=== PATIENT | female | born 1985 | race Caucasian/White ===

== ENCOUNTER 2017-06-25 13:28 | Emergency (ER) | payer OTHER ==
[~2017-06-25] VITALS: Ht 162.6 cm; Wt 52.2 kg
--- NOTE | 2017-06-25 13:40 | NUR ---
AAOX3 BIB RA C/O FEELING WEAK AND DIZZY WHILE AT WORK. RR IS EVEN AND UNLABORED WITH NAD NOTED. SKIN IS WARM AND DRY. PLACED ON MONITOR AND WILL CONTINUOUSLY MONITOR THE PATIENT. AWAITING MD FOR EVAL.
[2017-06-25 14:49] VITALS: BP 122/84
--- NOTE | 2017-06-25 14:49 | NUR ---
Patient discharged to home in stable condition. Written and verbal after care instructions given. Patient verbalizes understanding of instruction.
== END 2017-06-25 14:50 | disposition home or self-care (01) ==
LOC: ER 13:33
DX: R42 Dizziness and giddiness (principal); E10.9 Type 1 diabetes mellitus without complications; Z91.010 Allergy to peanuts
CPT/HCPCS: 82962; 84703; 93005; 99285; A4606; Z7610

== ENCOUNTER 2017-09-28 15:13 | Emergency (ER) | payer OTHER ==
[~2017-09-28] VITALS: Ht 160 cm; Wt 54.9 kg
--- NOTE | 2017-09-28 15:30 | NUR ---
BB FRIEND S/P SYNCOPE 15 MIN AGO. PATIENT RECEIVED AAO4. IN NO APPARENT DISTRESS. AFEBRILE. VSS
[2017-09-28 18:27] VITALS: BP 140/80
--- NOTE | 2017-09-28 18:27 | NUR ---
Patient discharged to home in stable condition. Written and verbal after care instructions given. Patient verbalizes understanding of instruction.
== END 2017-09-28 18:28 | disposition home or self-care (01) ==
LOC: ER 15:17
DX: E10.649 Type 1 diabetes mellitus with hypoglycemia without coma (principal); Z79.4 Long term (current) use of insulin; Z91.010 Allergy to peanuts
CPT/HCPCS: 82962 ×3; 84703; 93005; 99285; A4606; Z7610